=== PATIENT | male | born 2000 | race Asian ===

== ENCOUNTER → 2024-04-28 08:31 | Outpatient (CLI) | payer OTHER, SELFPAY | PROVIDERS: Referring Provider Chiropractor; Visit Provider Chiropractor | DX: R06.02 Shortness of breath (principal); D50.9 Iron deficiency anemia, unspecified; I10 Essential (primary) hypertension; R94.2 Abnormal results of pulmonary function studies | CPT/HCPCS: 94060 ==

== ENCOUNTER → 2024-04-28 08:34 | Outpatient (CLI) | payer OTHER, SELFPAY ==
--- NOTE | 2024-04-28 08:36 | DI.ECHO.S_ITS ---
[facility] +---------+ [facility] : : [address] : : [place] : : [id number] : : Phone: [phone] Echocardiogram Report + + :Name: DON BYERS Study Date: 04/28/2024 Height: 71 in : :Hospital ReadingLocation: Weight: 215 lb : : Gender: Male BSA: 2.2 m2 : :: 2000 Age: 23 yrs BP: 144/91 mmHg: :Reason For Study: HYPERTENSION : :Ordering Physician: CIELO, : :BHUPINDER Performed By: Angelia Handy : :Referring: BHUPINDER BUCK : + + Interpretation Summary Normal echo study. Procedure: A two-dimensional transthoracic echocardiogram with color flow and Doppler was performed. The study quality was technically adequate. There is no prior echocardiogram noted for this patient. The patient was in sinus rhythm with heart rates between 80-99 bpm during the exam. Left Ventricle: The left ventricle appears normal in size, wall thickness, and systolic function without any focal wall motion abnormalities. The ejection fraction is estimated to be 60-65%. Right Ventricle: The right ventricle is normal in size and function. Atria: The left atrial size is normal. Right atrial size is normal. There is no Doppler evidence for an interatrial shunt. Mitral Valve: The mitral valve is normal in structure and function. There is trace mitral regurgitation. Aortic Valve: The aortic valve is trileaflet. The aortic valve opens well. There is no aortic valve stenosis. No aortic regurgitation is present. Tricuspid Valve: The tricuspid valve leaflets are thin and pliable. There is a trace or physiologic amount of tricuspid regurgitation. No tricuspid regurgitation. Pulmonic Valve: The pulmonic valve is not well seen, but is grossly normal. There is no pulmonic valvular regurgitation. Great Vessels: The aortic root is normal size. The dimensions of the ascending aorta are normal. The IVC is of normal diameter and collapses greater than 50% with a sniff. This suggests a low right atrial pressure of 3 mm Hg. Pericardium/ Pleura There is no pericardial effusion. There is no pleural effusion. MMode/2D Measurements & Calculations LVIDd: 4.5 cm LVOT diam: 2.2 cm LVIDs: 3.1 cm Ao root diam: 2.9 cm FS: 31.1 % asc Aorta Diam: 3.0 cm EPSS: 0.91 cm Ao Arch Diam (Prox Trans): 2.6 cm IVSd: 1.0 cm LVPWd: 1.00 cm LV joyce. diameter/BSA (cm/m^2): 2.1 LV sys. diameter/BSA (cm/m^2): 1.4 LA A2 area: 15.8 cm2 RA long axis: 5.0 cm LA A4 area: 15.4 cm2 RA area: 14.6 cm2 LA length (vol): 5.3 cm RA vol: 36.2 ml LA vol: 39.3 ml RA : 16.6 ml/m2 LA vol index: 18.1 ml/m2 IVC diam: 1.0 cm RVD1 (basal): 3.7 cm TAPSE: 1.7 cm Doppler Measurements & Calculations Ao V2 max: 124.3 cm/sec LVOT Max Delfino: 85.4 cm/sec Ao V2 mean: 96.4 cm/sec LV V1 max P.9 mmHg Ao max P.2 mmHg LV V1 VTI: 14.3 cm Ao mean P.0 mmHg RONALD(I,D): 2.5 cm2 Ao V2 VTI: 22.4 cm RONALD(V,D): 2.7 cm2 sev ratio: 0.64 RONALD indexed to BSA (cm^2/m^2): 1.2 MV E max delfino: 60.1 cm/sec PA V2 max: 114.6 cm/sec MV A max delfino: 54.8 cm/sec PA V2 mean: 75.6 cm/sec MV E/A: 1.1 PA mean P.6 mmHg Med Peak E' Delfino: 10.8 cm/sec PA pr(Accel): 32.8 mmHg E/E' med: 5.5 Lat Peak E' Delfino: 15.6 cm/sec E/E' lat: 3.9 E/e' average: 4.7 MV dec time: 0.21 sec SV(LVOT): 56.2 ml Electronically signed by: Cabrera Jaeger on Reading Physician:04/28/2024 10:59 AM
--- NOTE | 2024-04-28 08:45 | DI.RAD.S_ITS ---
PROCEDURE: XR CHEST 2V INDICATIONS: SHORTNESS OF BREATH TECHNIQUE: 2 views of the chest were acquired. COMPARISON: None. FINDINGS: Surgical changes and devices: None. Lungs and pleura: Low lung volumes. No dense airspace disease or pleural effusions. Mediastinum: Normal heart size Bones and chest wall: Unremarkable IMPRESSION: Low lung volumes. No acute radiographic abnormality. Dictated by: John Fortune M.D. on 04/28/2024 at 15:14 Approved by: John Fortune M.D. on 04/28/2024 at 15:14
--- NOTE | 2024-04-28 10:35 | EKG_ITS ---
[facility] [address] [address] [address], [place] [address] Test Date: 2024-04-28 Pat Name: Adebayo Rodriguez Department: DEFAULT Room: Gender: Male Mechanical Drafter: MILES : 2000 Requested By: Order Number: [id number] Reading MD: Matheus Whyte MD Measurements Intervals [place] Rate: 75 P: 39 AK: 176 QRS: 88 QRSD: 116 T: 9 QT: 364 QTc: 406 Interpretive Statements Normal sinus rhythm Electronically Signed On 04-29-2024 6:50:22 PST by Matheus Whyte MD
[2024-04-28 11:56] LABS: Add Manual Diff / Slide Review YES; Hematocrit 45.4 % (41-53); Hemoglobin 14.2 g/dL (13.5-17.5); Mean Corpuscular HGB Conc 31.3 % (30-36); Mean Corpuscular Hemoglobin 20.1 PG (26-34); Mean Corpuscular Volume 64.2 fL (80-100); Platelet Count 336 X10^3/uL (150-400); Red Blood Cell Count 7.08 X10^6/uL (4.5-5.9); Red Cell Distribution Width 14.8 % (11.6-14.8); White Blood Cell Count 6.1 X10^3/uL (4.5-11.0)
[2024-04-28 12:18] LABS: Neutrophils Absolute Manual 2989 /uL (3000-5900); Total Cells Counted 100
[2024-04-28 12:20] LABS: Anisocytosis 1+; Microcytosis 1+
== END ==
PROVIDERS: Referring Provider Chiropractor; Visit Provider Chiropractor
DX: I10 Essential (primary) hypertension (principal); R06.02 Shortness of breath; D50.9 Iron deficiency anemia, unspecified; R94.2 Abnormal results of pulmonary function studies
CPT/HCPCS: 36415; 71046; 85007; 85025; 93005; 93010; 93306; 94060